=== PATIENT | female | born 1940 | race Caucasian/White ===

== ENCOUNTER → 2017-02-14 | Outpatient (CLI) | payer MEDICARE, SELFPAY | LOC: RAD 10:33 | DX: R04.2 Hemoptysis (principal); R04.9 Hemorrhage from respiratory passages, unspecified; J98.4 Other disorders of lung | CPT/HCPCS: 71020 ==

== ENCOUNTER → 2017-02-28 | Outpatient (CLI) | payer MEDICARE | LOC: CT 11:34 | DX: Z87.891 Personal history of nicotine dependence (principal); R91.8 Other nonspecific abnormal finding of lung field | CPT/HCPCS: G0297 ==

== ENCOUNTER → 2017-03-26 | Outpatient (CLI) | payer MEDICARE, OTHER | LOC: HEART 5 09:20 | DX: I25.10 Atherosclerotic heart disease of native coronary artery without angina pectoris (principal); I11.9 Hypertensive heart disease without heart failure; I51.7 Cardiomegaly; I48.91 Unspecified atrial fibrillation; I10 Essential (primary) hypertension; R07.9 Chest pain, unspecified; R06.00 Dyspnea, unspecified; I08.1 Rheumatic disorders of both mitral and tricuspid valves; I27.2 Other secondary pulmonary hypertension | CPT/HCPCS: 93306 ==

== ENCOUNTER → 2020-11-20 | Outpatient (CLI) | payer MEDICARE, SELFPAY ==
[~2020-11-20] MED LIST: ALTOPREV40 MG PO; AMMONIUM LACTATE TOP; AMOXICILLIN875 MG PO; AUGMENTIN 875-1 EACH PO; BACTROBAN OINT22 GM EXT; CALCIUM 600 +1 EAC7 PO; CARDIZEM CD120 MG PO; COMBIVENT RESPIM4 GM INH; DIGOX125 MCG PO; DIGOXIN125 MCG PO; ECOTRIN81 MG PO; FERROUS GLUCON324 M1 PO; FUROSEMIDE40 MG PO; ISOSORBIDE MONO30 MG PO; K-DUR TAB 10 M10 MEQ PO; KEVZARA200 MG/1.2 SQ; LEVAQUIN500 MG PO; LEVOFLOXACIN750 MG PO; LOPRESSOR50 MG PO; LOVASTATIN40 MG PO; METOPROLOL SUCC50 MG PO; MULTIVITAMINS1 EAC2 PO; NORCO 5-325 TA1 EACH PO; OS-CAL 500+D31 EACH PO; PREDNISONE5 MG PO; PROTONIX40 MG PO; RANEXA500 MG PO; ROCEPHIN; SPIRIVA HANDIH18 MCG INH; SYMBICORT 80-10.2 GM INH; SYNTHROID100 MCG PO; THERAGRAN M TAB1 EA PO; TOPROL XL50 MG PO; ULTRAM50 MG PO; URECHOLINE 25 M25 MG PO; VENTOLIN HFA 66.7 GM INH; XARELTO10 MG PO; XARELTO20 MG PO; XELJANZ10 MG PO; ZINC50 M1 PO
== END ==
LOC: HEART 5 09:00
DX: I25.10 Atherosclerotic heart disease of native coronary artery without angina pectoris (principal); I48.91 Unspecified atrial fibrillation; R94.39 Abnormal result of other cardiovascular function study; I70.0 Atherosclerosis of aorta; I08.1 Rheumatic disorders of both mitral and tricuspid valves
CPT/HCPCS: 78452; 93306; A9502; J2785

== ENCOUNTER → 2020-12-21 | Outpatient (CLI) | payer MEDICARE ==
[2020-12-21 16:55] LABS: HEMOGLOBIN 11.5 gm/dl (12.3-15.3); RED BLOOD COUNT 4.46 M/UL (4.00-5.10); WHITE BLOOD COUNT 9.1 K/UL (4.5-11.0)
== END ==
LOC: LAB 15:18
PROVIDERS: Internal Medicine Interventional Cardiology
DX: R94.39 Abnormal result of other cardiovascular function study (principal); I25.2 Old myocardial infarction; I48.91 Unspecified atrial fibrillation; R07.9 Chest pain, unspecified; R60.9 Edema, unspecified; I10 Essential (primary) hypertension; R94.31 Abnormal electrocardiogram [ECG] [EKG]
CPT/HCPCS: 80048; 85025; 85610; 85730; 93005; U0003

== ENCOUNTER → 2020-12-25 | Outpatient (CLI) | payer MEDICARE, SELFPAY | LOC: CATH 08:39 | DX: I20.9 Angina pectoris, unspecified (principal); I10 Essential (primary) hypertension; I48.91 Unspecified atrial fibrillation; I25.2 Old myocardial infarction; R94.39 Abnormal result of other cardiovascular function study; R60.9 Edema, unspecified; J44.9 Chronic obstructive pulmonary disease, unspecified; M19.90 Unspecified osteoarthritis, unspecified site; E78.5 Hyperlipidemia, unspecified; F32.9 Major depressive disorder, single episode, unspecified; E07.9 Disorder of thyroid, unspecified; R13.10 Dysphagia, unspecified; Z95.1 Presence of aortocoronary bypass graft; Z20.822 Contact with and (suspected) exposure to COVID-19; Z90.49 Acquired absence of other specified parts of digestive tract; Z79.899 Other long term (current) drug therapy; Z90.11 Acquired absence of right breast and nipple | CPT/HCPCS: 99152; 99153; C1769; J1644; J2250; J3010; J7030; Q9965 ==

== ENCOUNTER → 2020-12-28 | Outpatient (CLI) | payer MEDICARE, SELFPAY | LOC: CT 14:21 | DX: N32.89 Other specified disorders of bladder (principal); R91.1 Solitary pulmonary nodule | CPT/HCPCS: 36415; 71260; Q9967 ==

== ENCOUNTER 2021-05-15 13:13 | Inpatient (IN) | payer MEDICARE, MEDICAID ==
[~2021-05-15] VITALS: Ht 172.7 cm; Wt 81.4 kg
[~2021-05-15 13:13] MED LIST changes: -AUGMENTIN 875-1 EACH PO; -CARDIZEM CD120 MG PO; -COMBIVENT RESPIM4 GM INH; -DIGOX125 MCG PO; -FERROUS GLUCON324 M1 PO; -FUROSEMIDE40 MG PO; -ISOSORBIDE MONO30 MG PO; -K-DUR TAB 10 M10 MEQ PO; -LEVOFLOXACIN750 MG PO; -METOPROLOL SUCC50 MG PO; -PROTONIX40 MG PO; -SPIRIVA HANDIH18 MCG INH; -SYMBICORT 80-10.2 GM INH; -URECHOLINE 25 M25 MG PO
[2021-05-15 13:52] LABS: HEMOGLOBIN 10.6 gm/dl (12.3-15.3); RED BLOOD COUNT 4.36 M/UL (4.00-5.10); WHITE BLOOD COUNT 5.1 K/UL (4.5-11.0)
[2021-05-15 14:26] LABS: BUN/CREATININE RATIO 18 (0-10)
[2021-05-15] MEDS ORDERED: DIGOX125 MCG PO (15:56)
[2021-05-15] MEDS ORDERED: URECHOLINE 25 M25 MG PO (16:02)
[2021-05-15] MEDS ORDERED: ISOSORBIDE MONO30 MG PO (16:02)
[2021-05-15] MEDS ORDERED: CARDIZEM CD120 MG PO (16:37)
[2021-05-16 02:49] LABS: HEMOGLOBIN 9.9 gm/dl (12.3-15.3); RED BLOOD COUNT 4.11 M/UL (4.00-5.10)
[2021-05-16 03:23] LABS: BUN/CREATININE RATIO 15 (0-10)
[2021-05-16 11:02] LABS: BORDETELLA PARAPERTUSSIS Not Detected (Not Detectd); BORDETELLA PERTUSSIS Not Detected (Not Detectd); CHLAMYDIA PNEUMONIAE Not Detected (Not Detectd); CORONAVIRUS HKU1 Not Detected (Not Detectd); CORONAVIRUS NL63 Not Detected (Not Detectd); CORONAVIRUS OC43 Not Detected (Not Detectd); CORONOAVIRUS 229E Not Detected (Not Detectd); HUMAN METAPNEUMOVIRUS Not Detected (Not Detectd); HUMAN RHINOVIRUS/ENTEROVIRUS Not Detected (Not Detectd); INFLUENZA A Not Detected (Not Detectd); INFLUENZA B Not Detected (Not Detectd); MYCOPLASMA PNEUMONIAE Not Detected (Not Detectd); PARAINFLUENZA VIRUS 1 Not Detected (Not Detectd); PARAINFLUENZA VIRUS 2 Not Detected (Not Detectd); PARAINFLUENZA VIRUS 3 Not Detected (Not Detectd); PARAINFLUENZA VIRUS 4 Not Detected (Not Detectd); RESPIRATORY SYNCYTIAL VIRUS Not Detected (Not Detectd)
[2021-05-16 13:17] LABS: SARS-CoV-2 NOT DETECTED (Not Detectd)
[2021-05-17 03:55] LABS: HEMOGLOBIN 9.6 gm/dl (12.3-15.3); WHITE BLOOD COUNT 3.5 K/UL (4.5-11.0)
[2021-05-17 04:13] LABS: BUN/CREATININE RATIO 15 (0-10)
[2021-05-18 03:38] LABS: BUN/CREATININE RATIO 14 (0-10)
[2021-05-18 03:48] LABS: HEMOGLOBIN 10.1 gm/dl (12.3-15.3); RED BLOOD COUNT 4.33 M/UL (4.00-5.10); WHITE BLOOD COUNT 4.9 K/UL (4.5-11.0)
[2021-05-18] MEDS ORDERED: METOPROLOL SUCC50 MG PO (08:52)
[2021-05-18] MEDS ORDERED: FERROUS GLUCON324 M1 PO (08:52)
[2021-05-18] MEDS ORDERED: K-DUR TAB 10 M10 MEQ PO (08:52)
[2021-05-18] MEDS ORDERED: SPIRIVA HANDIH18 MCG INH (08:52)
[2021-05-18] MEDS ORDERED: SYMBICORT 80-10.2 GM INH (08:52)
[2021-05-18] MEDS ORDERED: FUROSEMIDE40 MG PO (08:52)
[2021-05-18] MEDS ORDERED: LEVOFLOXACIN750 MG PO (08:52)
[2021-05-18] MEDS ORDERED: COMBIVENT RESPIM4 GM INH ×2 (09:08→09:16)
[2021-05-18] MEDS ORDERED: PROTONIX40 MG PO (09:16)
[2021-05-18] MEDS ORDERED: AUGMENTIN 875-1 EACH PO (09:22)
--- NOTE | 2021-05-18 12:50 | NUR ---
REPORT CALLED TO SANDY WITH [facility].
== END 2021-05-18 12:05 | disposition home or self-care (01) | DRG 291 ==
LOC: ER1 13:13 → PROG CARE 15:13 → CDU 15:13 → PROG CARE 17:50
PROVIDERS: Family Medicine; Physician Assistant; ADMIT Internal Medicine
DX: I11.0 Hypertensive heart disease with heart failure (principal); J18.9 Pneumonia, unspecified organism; J96.01 Acute respiratory failure with hypoxia; J44.0 Chronic obstructive pulmonary disease with (acute) lower respiratory infection; E87.1 Hypo-osmolality and hyponatremia; I50.33 Acute on chronic diastolic (congestive) heart failure; D50.9 Iron deficiency anemia, unspecified; L40.9 Psoriasis, unspecified; I25.10 Atherosclerotic heart disease of native coronary artery without angina pectoris; E78.5 Hyperlipidemia, unspecified; M06.9 Rheumatoid arthritis, unspecified; Z20.822 Contact with and (suspected) exposure to COVID-19; E03.9 Hypothyroidism, unspecified; I48.91 Unspecified atrial fibrillation; R00.1 Bradycardia, unspecified; Z79.899 Other long term (current) drug therapy; Z79.82 Long term (current) use of aspirin; Z95.1 Presence of aortocoronary bypass graft; Z79.01 Long term (current) use of anticoagulants; Z90.11 Acquired absence of right breast and nipple; Z82.49 Family history of ischemic heart disease and other diseases of the circulatory system; Z87.891 Personal history of nicotine dependence; Z85.3 Personal history of malignant neoplasm of breast; Z86.718 Personal history of other venous thrombosis and embolism; Z98.49 Cataract extraction status, unspecified eye; Z88.8 Allergy status to other drugs, medicaments and biological substances
CPT/HCPCS: ECHO; 36415; 36600; 71045; 71046; 80048; 80053; 80162; 80202; 82550; 82553; 82728; 82803; 83540; 83550; 83735; 83874; 83880; 84439; 84443; 84484; 85025; 85027; 85610; 87040; 87633; 93306; 94760; 96374; 96375; 97162; 99285; J1940; J2543; J3370; J7070; U0002

== ENCOUNTER → 2021-05-24 | Outpatient (CLI) | payer MEDICARE, SELFPAY ==
[~2021-05-24] MED LIST changes: +ATROVENT HFA12.9 GM INH; +AUGMENTIN 875-1 EACH PO; +CARDIZEM CD120 MG PO; +COMBIVENT RESPIM4 GM INH; +DIGOX125 MCG PO; +FERROUS GLUCON324 M1 PO; +FUROSEMIDE40 MG PO; +ISOSORBIDE MONO30 MG PO; +K-DUR TAB 10 M10 MEQ PO; +LEVOFLOXACIN750 MG PO; +METOPROLOL SUCC50 MG PO; +MUCUS RELIEF1200 MG PO; +PROAIR HFA8.5 GM INH; +PROTONIX40 MG PO; +SPIRIVA HANDIH18 MCG INH; +SYMBICORT 80-10.2 GM INH; +URECHOLINE 25 M25 MG PO; +ZOLOFT25 MG PO; +ZYRTEC10 MG PO
[2021-05-24 13:08] LABS: BUN/CREATININE RATIO 16 (0-10)
== END ==
LOC: LAB 11:43
PROVIDERS: Internal Medicine
DX: I50.9 Heart failure, unspecified (principal); J18.9 Pneumonia, unspecified organism
CPT/HCPCS: 36415; 71046; 80048

== ENCOUNTER 2021-06-21 12:59 | Inpatient (IN) | payer MEDICARE, OTHER ==
[~2021-06-21] VITALS: Ht 172.7 cm; Wt 76.7 kg
[~2021-06-21 12:59] MED LIST changes: -ATROVENT HFA12.9 GM INH; -LOVASTATIN40 MG PO; -PROAIR HFA8.5 GM INH; -ZOLOFT25 MG PO; -ZYRTEC10 MG PO
[2021-06-21 14:09] LABS: HEMOGLOBIN 11.4 gm/dl (12.3-15.3); RED BLOOD COUNT 4.52 M/UL (4.00-5.10); WHITE BLOOD COUNT 13.5 K/UL (4.5-11.0)
[2021-06-21 14:33] LABS: BUN/CREATININE RATIO 19 (0-10)
[2021-06-21 19:17] LABS: BORDETELLA PARAPERTUSSIS Not Detected (Not Detectd); BORDETELLA PERTUSSIS Not Detected (Not Detectd); CHLAMYDIA PNEUMONIAE Not Detected (Not Detectd); CORONAVIRUS HKU1 Not Detected (Not Detectd); CORONAVIRUS NL63 Not Detected (Not Detectd); CORONAVIRUS OC43 Not Detected (Not Detectd); CORONOAVIRUS 229E Not Detected (Not Detectd); HUMAN METAPNEUMOVIRUS Not Detected (Not Detectd); HUMAN RHINOVIRUS/ENTEROVIRUS Not Detected (Not Detectd); INFLUENZA A Not Detected (Not Detectd); INFLUENZA B Not Detected (Not Detectd); MYCOPLASMA PNEUMONIAE Not Detected (Not Detectd); PARAINFLUENZA VIRUS 1 Not Detected (Not Detectd); PARAINFLUENZA VIRUS 2 Not Detected (Not Detectd); PARAINFLUENZA VIRUS 3 Not Detected (Not Detectd); PARAINFLUENZA VIRUS 4 Not Detected (Not Detectd); RESPIRATORY SYNCYTIAL VIRUS Not Detected (Not Detectd)
[2021-06-21 20:26] LABS: SARS-CoV-2 NOT DETECTED (Not Detectd)
[2021-06-22 05:47] LABS: HEMOGLOBIN 10.8 gm/dl (12.3-15.3); RED BLOOD COUNT 4.36 M/UL (4.00-5.10)
[2021-06-22 05:49] LABS: WHITE BLOOD COUNT 8.9 K/UL (4.5-11.0)
[2021-06-22 06:24] LABS: BUN/CREATININE RATIO 16 (0-10)
[2021-06-22] MEDS ORDERED: ZYRTEC10 MG PO (09:39)
[2021-06-22] MEDS ORDERED: PROAIR HFA8.5 GM INH (09:41)
[2021-06-22] MEDS ORDERED: ZOLOFT25 MG PO (09:41)
[2021-06-22] MEDS ORDERED: ATROVENT HFA12.9 GM INH (09:42)
[2021-06-22] MEDS ORDERED: LOVASTATIN40 MG PO (11:55)
[2021-06-23] MEDS ORDERED: LEVOFLOXACIN750 MG PO (16:08)
[2021-06-23] MEDS ORDERED: FUROSEMIDE40 MG PO (16:40)
== END 2021-06-23 17:38 | disposition home or self-care (01) | DRG 291 ==
LOC: ER1 12:59 → CDU 18:39 → M/S 18:39
PROVIDERS: Family Medicine; Internal Medicine; ADMIT Internal Medicine
DX: I11.0 Hypertensive heart disease with heart failure (principal); J96.21 Acute and chronic respiratory failure with hypoxia; J18.9 Pneumonia, unspecified organism; E87.2 Acidosis; I50.33 Acute on chronic diastolic (congestive) heart failure; I25.10 Atherosclerotic heart disease of native coronary artery without angina pectoris; J44.9 Chronic obstructive pulmonary disease, unspecified; E03.9 Hypothyroidism, unspecified; I48.91 Unspecified atrial fibrillation; Z20.822 Contact with and (suspected) exposure to COVID-19; D50.9 Iron deficiency anemia, unspecified; Z88.8 Allergy status to other drugs, medicaments and biological substances; Z90.10 Acquired absence of unspecified breast and nipple; Z98.49 Cataract extraction status, unspecified eye; Z79.01 Long term (current) use of anticoagulants; Z87.891 Personal history of nicotine dependence; Z98.890 Other specified postprocedural states; Z95.1 Presence of aortocoronary bypass graft; Z79.899 Other long term (current) drug therapy; Z82.49 Family history of ischemic heart disease and other diseases of the circulatory system; Z79.82 Long term (current) use of aspirin
CPT/HCPCS: 0240U; 36415; 71045; 80048; 80053; 80202; 81001; 82550; 82553; 83605; 83880; 84484; 85025; 87070; 87077; 87186; 87205; 87633; 93005; 94664; 94760; 96374; 96375; 97161; 97166; 99285; J0456; J2543; J2930; J3370; J7030; J7070

== ENCOUNTER 2021-07-12 11:53 | Emergency (ER) | payer MEDICARE ==
[~2021-07-12 11:53] MED LIST changes: +ATROVENT HFA12.9 GM INH; +LOVASTATIN40 MG PO; +PROAIR HFA8.5 GM INH; +ZOLOFT25 MG PO; +ZYRTEC10 MG PO
[2021-07-12 13:03] LABS: HEMOGLOBIN 11.3 gm/dl (12.3-15.3); RED BLOOD COUNT 4.47 M/UL (4.00-5.10); WHITE BLOOD COUNT 11.6 K/UL (4.5-11.0)
[2021-07-12 13:52] LABS: BUN/CREATININE RATIO 18 (0-10)
== END 2021-07-13 00:47 | disposition home or self-care (01) ==
LOC: ER1 11:53
PROVIDERS: Physician Assistant
DX: R06.02 Shortness of breath (principal); R05 Cough; Z20.822 Contact with and (suspected) exposure to COVID-19; I11.0 Hypertensive heart disease with heart failure; I50.9 Heart failure, unspecified; I48.91 Unspecified atrial fibrillation; E03.9 Hypothyroidism, unspecified; Z95.1 Presence of aortocoronary bypass graft
CPT/HCPCS: 36600; 71045; 80053; 82550; 82553; 82803; 83874; 84484; 85025; 93005; 94760; 96374; 96375; 99285; J0456; J2543; J7030; U0002

== ENCOUNTER 2021-08-09 13:52 | Inpatient (IN) | payer MEDICARE, OTHER ==
[~2021-08-09] VITALS: Ht 172.7 cm; Wt 65.6 kg
[2021-08-09 14:38] LABS: HEMOGLOBIN 11.5 gm/dl (12.3-15.3); RED BLOOD COUNT 4.32 M/UL (4.00-5.10)
[2021-08-09 15:03] LABS: BUN/CREATININE RATIO 20 (0-10)
[2021-08-10 05:00] LABS: HEMOGLOBIN 10.3 gm/dl (12.3-15.3); RED BLOOD COUNT 3.93 M/UL (4.00-5.10); WHITE BLOOD COUNT 8.1 K/UL (4.5-11.0)
[2021-08-10 05:25] LABS: BUN/CREATININE RATIO 18 (0-10)
[2021-08-11 06:42] LABS: HEMOGLOBIN 9.8 gm/dl (12.3-15.3); RED BLOOD COUNT 3.75 M/UL (4.00-5.10)
[2021-08-11 06:50] LABS: WHITE BLOOD COUNT 10.3 K/UL (4.5-11.0)
[2021-08-11 07:21] LABS: BUN/CREATININE RATIO 21 (0-10)
[2021-08-12 07:53] LABS: HEMOGLOBIN 10.1 gm/dl (12.3-15.3); RED BLOOD COUNT 3.86 M/UL (4.00-5.10); WHITE BLOOD COUNT 8.7 K/UL (4.5-11.0)
[2021-08-12 08:08] LABS: BUN/CREATININE RATIO 21 (0-10)
[2021-08-12 15:20] LABS: BORDETELLA PARAPERTUSSIS Not Detected (Not Detectd); BORDETELLA PERTUSSIS Not Detected (Not Detectd); CHLAMYDIA PNEUMONIAE Not Detected (Not Detectd); CORONAVIRUS HKU1 Not Detected (Not Detectd); CORONAVIRUS NL63 Not Detected (Not Detectd); CORONAVIRUS OC43 Not Detected (Not Detectd); CORONOAVIRUS 229E Not Detected (Not Detectd); HUMAN METAPNEUMOVIRUS Not Detected (Not Detectd); HUMAN RHINOVIRUS/ENTEROVIRUS Not Detected (Not Detectd); INFLUENZA A Not Detected (Not Detectd); INFLUENZA B Not Detected (Not Detectd); MYCOPLASMA PNEUMONIAE Not Detected (Not Detectd); PARAINFLUENZA VIRUS 1 Not Detected (Not Detectd); PARAINFLUENZA VIRUS 2 Not Detected (Not Detectd); PARAINFLUENZA VIRUS 3 Not Detected (Not Detectd); PARAINFLUENZA VIRUS 4 Not Detected (Not Detectd); RESPIRATORY SYNCYTIAL VIRUS Not Detected (Not Detectd)
[2021-08-12 16:28] LABS: SARS-CoV-2 NOT DETECTED (Not Detectd)
[2021-08-13 06:34] LABS: HEMOGLOBIN 11.3 gm/dl (12.3-15.3); WHITE BLOOD COUNT 8.4 K/UL (4.5-11.0)
[2021-08-13 06:42] LABS: RED BLOOD COUNT 4.27 M/UL (4.00-5.10)
[2021-08-13 07:10] LABS: BUN/CREATININE RATIO 26 (0-10)
[2021-08-14 06:35] LABS: HEMOGLOBIN 11.2 gm/dl (12.3-15.3); RED BLOOD COUNT 4.24 M/UL (4.00-5.10); WHITE BLOOD COUNT 9.1 K/UL (4.5-11.0)
[2021-08-14 07:17] LABS: BUN/CREATININE RATIO 24 (0-10)
[2021-08-15 07:03] LABS: HEMOGLOBIN 11.4 gm/dl (12.3-15.3); RED BLOOD COUNT 4.34 M/UL (4.00-5.10)
[2021-08-15 07:18] LABS: WHITE BLOOD COUNT 11.7 K/UL (4.5-11.0)
[2021-08-15 07:19] LABS: BUN/CREATININE RATIO 31 (0-10)
[2021-08-16 03:30] LABS: RED BLOOD COUNT 4.23 M/UL (4.00-5.10); WHITE BLOOD COUNT 12.9 K/UL (4.5-11.0)
[2021-08-16 03:58] LABS: BUN/CREATININE RATIO 28 (0-10)
--- NOTE | 2021-08-16 14:36 | NUR ---
PATIENT HAD BP OF 88/[address] MEADOWS WAS NOTIFIED. ORDERED A MANUAL RECHECK AND PATIENTS BP WAS FOUND TO BE 90/53. PATIENT IS OTHERWISE ASYMPTOMATIC SITTING UP IN CHAIR AND STATES SHE FEELS FINE. OTHER VITALS ARE NORMAL. DR. MEADOWS ORDERED DIURETICS AND BP MEDICATIONS HELD AND TO OBSERVE HER FOR NOW PENDING ANY CHANGE IN VITALS. WILL CONTINUE TO MONITOR.
[2021-08-17 06:50] LABS: HEMOGLOBIN 10.3 gm/dl (12.3-15.3); RED BLOOD COUNT 3.85 M/UL (4.00-5.10)
[2021-08-17 07:17] LABS: BUN/CREATININE RATIO 28 (0-10)
== END 2021-08-17 18:22 | disposition home health service (06) | DRG 698 ==
LOC: ER1 13:52 → CDU 18:53 → MED SURG 4 18:53
PROVIDERS: Internal Medicine; Nurse Practitioner; Physician Assistant; Physician Assistant Medical; ADMIT Internal Medicine
DX: T83.511A Infection and inflammatory reaction due to indwelling urethral catheter, initial encounter (principal); J96.21 Acute and chronic respiratory failure with hypoxia; J96.22 Acute and chronic respiratory failure with hypercapnia; J18.9 Pneumonia, unspecified organism; I50.33 Acute on chronic diastolic (congestive) heart failure; E87.2 Acidosis; N30.00 Acute cystitis without hematuria; J44.0 Chronic obstructive pulmonary disease with (acute) lower respiratory infection; J44.1 Chronic obstructive pulmonary disease with (acute) exacerbation; I11.0 Hypertensive heart disease with heart failure; Z20.822 Contact with and (suspected) exposure to COVID-19; E83.42 Hypomagnesemia; Y83.9 Surgical procedure, unspecified as the cause of abnormal reaction of the patient, or of later complication, without mention of misadventure at the time of the procedure; I48.91 Unspecified atrial fibrillation; I25.10 Atherosclerotic heart disease of native coronary artery without angina pectoris; E03.9 Hypothyroidism, unspecified; D50.9 Iron deficiency anemia, unspecified; F17.210 Nicotine dependence, cigarettes, uncomplicated; E87.6 Hypokalemia; I50.9 Heart failure, unspecified; R33.9 Retention of urine, unspecified; Z99.81 Dependence on supplemental oxygen; Z87.01 Personal history of pneumonia (recurrent); Z87.440 Personal history of urinary (tract) infections; Z85.3 Personal history of malignant neoplasm of breast; Z90.10 Acquired absence of unspecified breast and nipple; Z95.1 Presence of aortocoronary bypass graft; Z98.49 Cataract extraction status, unspecified eye; Z98.890 Other specified postprocedural states; Z82.49 Family history of ischemic heart disease and other diseases of the circulatory system; Z79.82 Long term (current) use of aspirin; Z88.1 Allergy status to other antibiotic agents; Z88.8 Allergy status to other drugs, medicaments and biological substances
CPT/HCPCS: 36415; 36600; 71045; 71046; 80048; 80053; 81001; 82550; 82553; 82803; 82962; 83605; 83735; 83874; 83880; 84132; 84484; 85025; 85027; 87040; 87086; 87633; 93005; 94640; 94664; 94760; 96374; 96375; 97110; 97110-GP-CQ; 97116; 97116-GP-CQ; 97161; 97530; 99285; G0378; J1120; J1335; J1940; J2920; J3475; J7040; U0002

== ENCOUNTER → 2021-11-07 | Outpatient (CLI) | payer MEDICARE | LOC: WCC 08:47 | PROC: 0JB70ZZ Excision of Back Subcutaneous Tissue and Fascia, Open Approach (ICD-10-PCS; principal; 2021-11-07) | DX: L89.113 Pressure ulcer of right upper back, stage 3 (principal); I11.0 Hypertensive heart disease with heart failure; I50.9 Heart failure, unspecified; I25.2 Old myocardial infarction; M19.90 Unspecified osteoarthritis, unspecified site; D64.9 Anemia, unspecified; J44.9 Chronic obstructive pulmonary disease, unspecified; M06.9 Rheumatoid arthritis, unspecified; I25.10 Atherosclerotic heart disease of native coronary artery without angina pectoris; F32.A Depression, unspecified ==

== ENCOUNTER → 2021-11-13 | Outpatient (CLI) | payer MEDICARE ==
[2021-11-13 13:02] LABS: HEMOGLOBIN 11.1 gm/dl (12.3-15.3); RED BLOOD COUNT 3.65 M/UL (4.00-5.10); WHITE BLOOD COUNT 7.3 K/UL (4.5-11.0)
[2021-11-14 07:10] LABS: A/G RATIO 0.8 (1.2-2.2); BILIRUBIN, TOTAL 0.2 mg/dL (0.0-1.2); CALCIUM, SERUM 9.5 mg/dL (8.7-10.3); CREATININE, SERUM 0.37 mg/dL (0.57-1.00); GLOBULIN, TOTAL 3.5 g/dL (1.5-4.5); POTASSIUM, SERUM 4.1 mmol/L (3.5-5.2); PROTEIN, TOTAL, SERUM 6.4 g/dL (6.0-8.5)
== END ==
LOC: LAB 11:58
PROVIDERS: Physician Assistant
DX: R06.02 Shortness of breath (principal)
CPT/HCPCS: 36415; 71046; 80053; 83880; 85025

== ENCOUNTER → 2021-11-14 | Outpatient (CLI) | payer MEDICARE | END | disposition home or self-care (01) | LOC: WCC 07:34 | PROC: 0JB70ZZ Excision of Back Subcutaneous Tissue and Fascia, Open Approach (ICD-10-PCS; principal; 2021-11-14) | DX: L89.113 Pressure ulcer of right upper back, stage 3 (principal); J44.9 Chronic obstructive pulmonary disease, unspecified; M06.9 Rheumatoid arthritis, unspecified; I25.10 Atherosclerotic heart disease of native coronary artery without angina pectoris; I11.0 Hypertensive heart disease with heart failure; I50.9 Heart failure, unspecified; D64.9 Anemia, unspecified; I25.2 Old myocardial infarction; Z86.718 Personal history of other venous thrombosis and embolism ==

== ENCOUNTER → 2021-11-15 | Outpatient (CLI) | payer MEDICARE | LOC: ECHO 12:30 | DX: R06.02 Shortness of breath (principal); I08.3 Combined rheumatic disorders of mitral, aortic and tricuspid valves; I27.20 Pulmonary hypertension, unspecified | CPT/HCPCS: ECHO; 93306 ==